=== PATIENT | female | born 1970 | race Caucasian/White ===

== ENCOUNTER 2024-03-19 09:37 | Emergency (ER) | payer MEDICAID, OTHER ==
[~2024-03-19] VITALS: Ht 167.6 cm; Wt 91.0 kg
[2024-03-19 09:47] VITALS: BP 157/91; PULSE 80; RESP 18; TEMP 98.5; O2SAT 100
[2024-03-19] MEDS ORDERED: FLUORESCEIN SODIUM 1MG/STRIP RIGHTEYE ONE (10:00)
[2024-03-19] MEDS ORDERED: TETRACAINE 0.5% OPHTH DROPS 4ML RIGHTEYE ONE (10:00)
== END 2024-03-19 11:24 | disposition left against medical advice (07) ==
LOC: ER 09:37
DX: H11.31 Conjunctival hemorrhage, right eye (principal); I10 Essential (primary) hypertension; G43.909 Migraine, unspecified, not intractable, without status migrainosus; Z98.890 Other specified postprocedural states; Z90.49 Acquired absence of other specified parts of digestive tract
CPT/HCPCS: 99281

== ENCOUNTER 2024-03-25 15:37 | Emergency (ER) | payer MEDICAID, OTHER ==
[~2024-03-25] VITALS: Ht 160 cm; Wt 91.0 kg
[2024-03-25 15:49] VITALS: O2SAT 100
[2024-03-25 17:43] VITALS: BP 134/93; PULSE 80; RESP 18; TEMP 98.2
[2024-03-25] MEDS ORDERED: AMLO2.5T2 MT (17:50)
== END 2024-03-25 17:57 | disposition home or self-care (01) ==
LOC: ER 15:37
DX: I10 Essential (primary) hypertension (principal); G43.909 Migraine, unspecified, not intractable, without status migrainosus
CPT/HCPCS: 99281; 99283